=== PATIENT | male | born 1935 | race Caucasian/White ===

== ENCOUNTER → 2018-03-04 08:00 | Outpatient (CLI) | payer BC, MEDICARE, OTHER, SELFPAY ==
[2018-03-04 08:57] LABS: Add Manual Diff / Slide Review NO; Basophils Percent Auto 1.3 % (0-2); Eosinophils Percent Auto 7.3 % (2-4); Hematocrit 38.5 % (41-53); Lymphocytes Percent Auto 28.4 % (25-40); Mean Corpuscular HGB Conc 33.9 % (30-36); Mean Corpuscular Hemoglobin 32.4 PG (26-34); Mean Corpuscular Volume 95.7 fL (80-100); Monocytes Percent Auto 9.6 % (3-14); Neutrophils Absolute Auto 2900 /uL (3000-5900); Neutrophils Percent Auto 53.4 % (50-75); Platelet Count 219 X10^3/uL (150-400); Red Blood Cell Count 4.02 X10^6/uL (4.5-5.9); Red Cell Distribution Width 14.5 % (11.6-14.8); White Blood Cell Count 5.4 X10^3/uL (4.5-11.0)
[2018-03-04 09:05] LABS: Alanine Aminotransferase 25 IU/L (21-72); Albumin Globulin Ratio 1.5 (1.0-2.8); Alkaline Phosphatase 64 U/L (38-126); Aspartate Aminotransferase 27 IU/L (17-59); Bilirubin Total 0.6 mg/dL (0.2-1.3); Blood Urea Nitrogen 19 mg/dL (9-20); Calcium 9.3 mg/dL (8.4-10.2); Carbon Dioxide 29 mmol/L (22-32); Chloride 104 mmol/L (98-107); Cholesterol 152 mg/dL (140-199); Estimated Glomerular Filt Rate > 60.0 mL/min (>60); Globulin 2.6 g/dL (1.7-4.1); Glucose 102 mg/dL (80-110); HDL Cholesterol 79 mg/dL (40-60); HEMOLYSIS < 15 (0-50); LDL Cholesterol Calculated 62 mg/dL (<100); Potassium 4.6 mmol/L (3.4-5.1); Sodium 141 mmol/L (137-145); Total Protein 6.6 g/dL (6.3-8.2); Triglycerides 54 mg/dL (35-150)
[2018-03-04 09:30] LABS: Prostate Specific Antigen Scrn 1.58 ng/mL (0.1-4.0)
[2018-03-04 09:58] LABS: TSH w/ Reflex to FT4 2.53 uIU/mL (0.47-4.68)
== END ==
PROVIDERS: PCP Family Medicine; Visit Provider Family Medicine
DX: I10 Essential (primary) hypertension (principal); N40.0 Benign prostatic hyperplasia without lower urinary tract symptoms
CPT/HCPCS: 36415; 80053; 80061; 84443; 85025; G0103

== ENCOUNTER → 2018-04-02 11:33 | Outpatient (CLI) | payer BC, MEDICARE, OTHER, SELFPAY ==
--- NOTE | 2018-04-23 08:10 | PM.CARDMON.1 ---
Vehicle Insurance Agent Report Referral & Results Date Patient Seen: 04/02/18 Requesting provider: Amos Chicas Indication: Syncope Duration of monitoring (days): 12 Diary information: There are no patient diary entries There were 5 patient triggered events associated with sinus rhythm, PVCs, PACs, and ventricular bigeminy Data: Minimum heart rate was 50 beats per minute at 10:20 on 04/04/2018 Maximum sinus heart rate was 130 beats per minute at 08:40 on 04/03/2018 Maximum overall heart rate was 179 beats per minute at 08:34 on 04/03/2018 during a 5 beat run of SVT 1.6% of identified beats or 20,596 beats were PACs Less than 1% of identified beats were PVCs Patient did have a run of ventricular bigeminy that lasted approximately 1 min 16 sec There was an 8 beat run of presumed slow ventricular tachycardia occurring at 00:15 on 04/08/2018, and a 4 beat run similar slow ventricular tachycardia at 08:20 on 04/05/2018 Impression: Dysrhythmias as above. No clear etiology for syncope identified. Patient with frequent PACs.
--- NOTE | 2018-04-23 08:13 | P.HOLT.S_ITS ---
Zoning Administrator Report Referral & Results Date Patient Seen: 04/02/18 Requesting provider: Amos Chicas Indication: Syncope Duration of monitoring (days): 12 Diary information: There are no patient diary entries There were 5 patient triggered events associated with sinus rhythm, PVCs, PACs, and ventricular bigeminy Data: Minimum heart rate was 50 beats per minute at 10:20 on 04/04/2018 Maximum sinus heart rate was 130 beats per minute at 08:40 on 04/03/2018 Maximum overall heart rate was 179 beats per minute at 08:34 on 04/03/2018 during a 5 beat run of SVT 1.6% of identified beats or 20,596 beats were PACs Less than 1% of identified beats were PVCs Patient did have a run of ventricular bigeminy that lasted approximately 1 min 16 sec There was an 8 beat run of presumed slow ventricular tachycardia occurring at 00 :15 on 04/08/2018, and a 4 beat run similar slow ventricular tachycardia at 08: 20 on 04/05/2018 Impression: Dysrhythmias as above. No clear etiology for syncope identified. Patient with frequent PACs.
== END ==
PROVIDERS: Family Provider Family Medicine; PCP Family Medicine; Visit Provider Family Medicine
DX: R55 Syncope and collapse (principal)
CPT/HCPCS: 0296T

== ENCOUNTER → 2018-05-12 09:24 | Outpatient (CLI) | payer BC, MEDICARE, OTHER, SELFPAY ==
--- NOTE | 2018-05-12 09:25 | DI.ECHO.S_ITS ---
[facility]---------+ [facility] +---------+ : : [address] : [address] [place] : : : : [id number] : : : : Phone: [phone]+ Echocardiogram Report + + :Name: LAQUITA CHINCHILLA Study Date: 05/12/2018 Height: 71 in : :[facility] Weight: 181 lb : : Gender: Male BSA: 2.0 m2 : :: 1935 Age: 82 yrs BP: 158/70 mmHg: :Reason For Study: Arrhythmia, SVT : : Performed By: Jacqueline Jordan : :Referring: DEONDRE TO : + + Interpretation Summary 1) Normal left ventricular thickness, size, wall motion, and systolic function (EF 60-65%). 2) Normal right ventricular size and function. 3) Moderately enlarged left atrium and mildly enlarged right atrium. 4) No significant valvular abnormalities. 5) No prior Echo available for comparison. Procedure: A two-dimensional transthoracic echocardiogram with color flow and Doppler was performed. The study quality was technically good. There is no prior echocardiogram noted for this patient. The patient was in normal sinus rhythm during the exam. Left Ventricle: The left ventricle is normal in size, wall thickness, and systolic function without any focal wall motion abnormalities. The ejection fraction is estimated to be 60-65%. Assessment of diastolic parameters indicates a relaxation abnormality of the left ventricle, consistent with normal filling pressures. Right Ventricle: The right ventricle grossly appears normal in size with probable normal systolic function. Atria: The left atrium is moderately dilated. The right atrium is mildly dilated. The interatrial septum is intact with no evidence for an atrial septal defect. Mitral Valve: The mitral valve is normal in structure and function. There is no mitral regurgitation noted. Aortic Valve: The aortic valve is trileaflet. The aortic valve opens well. There is no aortic valve stenosis. There is trace aortic regurgitation. Tricuspid Valve: The tricuspid valve leaflets are thin and pliable. There is mild tricuspid regurgitation. Pulmonic Valve: The pulmonic valve is normal in structure and function. There is trace pulmonic regurgitation. Great Vessels: The aortic root is mildly dilated. The ascending aorta is at the upper limits of normal in size. Pericardium/ Pleura There is no pericardial effusion. There is no pleural effusion. MMode/2D Measurements & Calculations LVIDd: 4.9 cm Ao root diam: 3.9 cm LVIDs: 3.2 cm Aortic Jxn: 3.0 cm FS: 34.6 % asc Aorta Diam: 3.9 cm EPSS: 0.52 cm Ao Arch Diam (Prox Trans): 3.0 cm IVSd: 0.77 cm LVPWd: 0.77 cm LV dickey. diameter/BSA (cm/m^2): 2.4 LV sys. diameter/BSA (cm/m^2): 1.6 LA dimension: 4.0 cm RA long axis: 6.5 cm LA A2 area: 27.3 cm2 RA area: 23.0 cm2 LA A4 area: 24.2 cm2 RA vol: 69.7 ml LA length (vol): 6.1 cm RA : 34.5 ml/m2 LA vol: 91.9 ml IVC diam: 1.7 cm LA vol index: 45.5 ml/m2 RVDd major: 5.6 cm RVD1 (basal): 3.4 cm RVD2 (mid): 3.1 cm Doppler Measurements & Calculations Ao V2 max: 149.4 cm/sec MV E max farhad: 60.8 cm/sec Ao V2 mean: 92.6 cm/sec MV A max farhad: 62.6 cm/sec Ao max P.9 mmHg MV E/A: 0.97 Ao mean P.2 mmHg Med Peak E' Farhad: 5.2 cm/sec Ao V2 VTI: 35.4 cm E/E' med: 11.8 Lat Peak E' Farhad: 8.8 cm/sec E/E' lat: 6.9 E/e' average: 9.3 MV dec time: 0.30 sec MV P1/2t: 87.1 msec TR max farhad: 296.6 cm/sec MV P1/2t max farhad: 61.4 cm/sec TR max P.2 mmHg MVA(P1/2t): 2.5 cm2 PA V2 max: 90.9 cm/sec PA V2 mean: 59.7 cm/sec PA mean P.7 mmHg PA Accel Time: 0.12 sec Reading Physician:12:53 PM
== END ==
PROVIDERS: Family Provider Family Medicine; PCP Family Medicine; Visit Provider Family Medicine
DX: I47.1 Supraventricular tachycardia (principal); I07.1 Rheumatic tricuspid insufficiency
CPT/HCPCS: 93306

== ENCOUNTER 2019-01-29 15:19 | Day surgery (SDC) | payer MEDICARE, OTHER, SELFPAY ==
[2019-01-29 15:50] VITALS: BP 168/93; PULSE 73; RESP 16; TEMP 36.2; O2SAT 99; BMI 24.8
--- NOTE | 2019-01-29 15:52 | PM.PREOP ---
Pre-operative Note Interval Note History & Physical reviewed/Exam performed by Physician: Yes Changes to H&P: No ASA Class (for procedural sedation): II
[2019-01-29] MEDS: SODIUM CHLORIDE 0.9% 1,000 ML 200 ML IV (15:58)
[2019-01-29] MEDS: fentaNYL 250 MCG/5 ML INJ IV (16:23)
[2019-01-29] MEDS: MIDAZOLAM 5 MG/5 ML VIAL IV (16:23)
--- NOTE | 2019-01-29 16:32 | PM.OP.ENDO ---
Operative Date/Time/Diagnoses Date of procedure: 01/29/19 Time of procedure: 16:32 Pre-op diagnosis: High risk screening colonoscopy Post-op diagnosis: same Procedure & Clinicians Study performed: High risk screening colonoscopy Same procedure as scheduled: Yes Indications: 83yo M with history of unremarkable screening colonoscopies but recent diagnosis of CRC in brother; no other family history nor alarm symptoms in patient. Surgeon: Zehra Stevensr Procedure Notes SCOAP/Timeout: 1407 Procedure in detail: After obtaining informed consent, the patient was brought to the GI suite and placed in the left lateral decubitus position on the examination table. After placement of appropriate monitors, the patient was given incremental doses of Versed and Fentanyl until an appropriate level of sedation was achieved. A time out was held per SCOAP protocol. A digital rectal examination was performed and did not reveal any masses or obstructing lesions but a mildly enlarged prostate is noted. The colonoscope was gently passed into the patient's anus and the entire colon navigated to the level of the cecum with minimal difficulty. Prep was adequate. Once in the cecum, the scope was slowly withdrawn being sure to go before and beyond all mucosal folds and prominences as able to get a thorough examination. No masses or polyps are noted. Other findings include a few small and scattered diverticula in the right colon. At the level of the rectal vault, the scope was retroflexed and the internal anal canal was examined. The scope was straightened and air aspirated from the colon. The instrument was removed from the patient's body and the procedure was concluded. The patient was allowed to awaken from sedation without difficulty and taken to the post-anesthesia care unit in good condition. Scope withdrawal time: 9 min Sedation minutes: 47 Findings: diverticulosis (scattered, in right colon) Specimen(s): none sent Complications: none Impression: 1. scattered diverticulosis in right colon 2. mildly enlarged prostate Recommendations: Colonscopy in 5 years (for high risk following, soft recommendation ) and High fiber diet Follow up: as needed Disposition: PACU
[2019-01-29 16:39] VITALS: BP 161/87; PULSE 75; RESP 16; TEMP 36.2; O2SAT 98
== END 2019-01-29 17:00 | disposition home or self-care (01) ==
PROVIDERS: Family Provider Family Medicine; PCP Family Medicine; Visit Provider Surgery
PROC: 0DJD8ZZ Inspection of Lower Intestinal Tract, Via Natural or Artificial Opening Endoscopic (ICD-10-PCS; CPT 45378; principal; 2019-01-29 16:00)
DX: Z12.11 Encounter for screening for malignant neoplasm of colon (principal); Z80.0 Family history of malignant neoplasm of digestive organs; I10 Essential (primary) hypertension; K57.30 Diverticulosis of large intestine without perforation or abscess without bleeding; N40.0 Benign prostatic hyperplasia without lower urinary tract symptoms
CPT/HCPCS: G0105; 99152; 99153; J2250; J3010

== ENCOUNTER → 2019-03-17 08:11 | Outpatient (CLI) | payer MEDICARE, OTHER, SELFPAY ==
[2019-03-17 09:25] LABS: Hematocrit 40.8 % (41-53); Hemoglobin 13.6 g/dL (13.5-17.5); Mean Corpuscular HGB Conc 33.2 % (30-36); Mean Corpuscular Hemoglobin 32.2 PG (26-34); Mean Corpuscular Volume 96.8 fL (80-100); Platelet Count 254 X10^3/uL (150-400); Red Blood Cell Count 4.22 X10^6/uL (4.5-5.9); Red Cell Distribution Width 14.5 % (11.6-14.8)
[2019-03-17 09:57] LABS: Alanine Aminotransferase 20 IU/L (21-72); Albumin Globulin Ratio 1.3 (1.0-2.8); Alkaline Phosphatase 68 U/L (38-126); Aspartate Aminotransferase 31 IU/L (17-59); Bilirubin Total 0.5 mg/dL (0.2-1.3); Blood Urea Nitrogen 18 mg/dL (9-20); Calcium 9.4 mg/dL (8.4-10.2); Carbon Dioxide 28 mmol/L (22-32); Chloride 103 mmol/L (98-107); Cholesterol 170 mg/dL (140-199); Estimated Glomerular Filt Rate > 60.0 mL/min (>60); Glucose 107 mg/dL (80-110); HDL Cholesterol 64 mg/dL (40-60); HEMOLYSIS < 15 (0-50); LDL Cholesterol Calculated 94 mg/dL (<100); Potassium 4.5 mmol/L (3.4-5.1); Sodium 138 mmol/L (137-145); Triglycerides 60 mg/dL (35-150); Uric Acid 4.1 mg/dL (3.5-8.5)
[2019-03-17 10:26] LABS: Prostate Specific Antigen 1.53 ng/mL (0.10-4.00)
[2019-03-17 10:31] LABS: TSH w/ Reflex to FT4 2.75 uIU/mL (0.47-4.68)
[2019-03-17 10:44] LABS: Vitamin B12 425 pg/mL (239-931)
[2019-03-17 12:05] LABS: Neutrophils Absolute Manual 2550 /uL (3000-5900); Total Cells Counted 100
[2019-03-17 12:07] LABS: RBC Morphology Normal Morphology
== END ==
PROVIDERS: PCP Family Medicine; Visit Provider Family Medicine
DX: E53.8 Deficiency of other specified B group vitamins (principal); I10 Essential (primary) hypertension; M10.9 Gout, unspecified; N40.0 Benign prostatic hyperplasia without lower urinary tract symptoms
CPT/HCPCS: 36415; 80053; 80061; 82607; 84153; 84443; 84550; 85025

== ENCOUNTER → 2019-09-01 09:05 | Outpatient (CLI) | payer MEDICARE, OTHER, SELFPAY ==
--- NOTE | 2019-09-01 09:08 | DI.ECHO.S_ITS ---
[facility] +---------+ [facility] +---------+ : : [address] : : [address] : [place] : : : : [phone] : : : : Phone: [phone]+ Echocardiogram Report + + :Name: LAQUITA CHINCHILLA Study Date: 09/01/2019 Height: 72 in : :[facility] Weight: 188 lb : : Gender: Male BSA: 2.1 m2 : :: 1935 Age: 83 yrs BP: 142/76 mmHg: :Reason For Study: Syncope : :Ordering Physician: Dr. Trinidad : :Juan Francisco Performed By: Nikos Bach : :Referring: DEONDRE TO : + + Interpretation Summary The ejection fraction is estimated to be 60-65%. The right ventricular systolic pressure is estimated to be at least 36 mmHg based on an estimated right atrial pressure of 3 mm Hg. There is mild tricuspid regurgitation. The aortic root is borderline dilated. Procedure: A two-dimensional transthoracic echocardiogram with color flow and Doppler was performed. The study quality was technically adequate. Prior echo performed on 05/12/18. The patient was in normal sinus rhythm during the exam. Left Ventricle: The left ventricle is normal in size. There is normal left ventricular wall thickness. Left ventricular systolic function is normal. The ejection fraction is estimated to be 60-65%. Left ventricular wall motion is normal. Right Ventricle: The right ventricle is normal in size and function. Atria: There is mild biatrial enlargement. The interatrial septum is intact with no evidence for an atrial septal defect. Mitral Valve: The mitral valve is normal in structure and function. There is trace mitral regurgitation. Aortic Valve: The aortic valve is trileaflet. The aortic valve opens well. There is trace aortic regurgitation. Tricuspid Valve: The tricuspid valve is normal in structure and function. There is mild tricuspid regurgitation. The right ventricular systolic pressure is estimated to be at least 36 mmHg based on an estimated right atrial pressure of 3 mm Hg. Pulmonic Valve: The pulmonic valve is not well visualized. There is trace pulmonic regurgitation. Great Vessels: The aortic root is borderline dilated. The dimensions of the ascending aorta are normal. The pulmonary artery is normal size. The IVC is of normal diameter and collapses greater than 50% with a sniff. This suggests a low right atrial pressure of 3 mm Hg. Pericardium/ Pleura There is no pericardial effusion. There is no pleural effusion. MMode/2D Measurements & Calculations LVIDd: 4.0 cm LVOT diam: 2.1 cm LVIDs: 2.8 cm Ao root diam: 3.7 cm FS: 29.7 % Aortic Jxn: 3.2 cm EPSS: 0.40 cm IVSd: 1.0 cm LVPWd: 0.91 cm LV dickey. diameter/BSA (cm/m^2): 1.9 LV sys. diameter/BSA (cm/m^2): 1.4 LA A2 area: 24.0 cm2 RA long axis: 6.3 cm LA A4 area: 22.0 cm2 RA area: 16.4 cm2 LA length (vol): 5.7 cm RA vol: 36.2 ml LA vol: 78.8 ml RA : 17.4 ml/m2 LA vol index: 38.0 ml/m2 TAPSE: 2.6 cm Doppler Measurements & Calculations Ao V2 max: 116.8 cm/sec LVOT Max Farhad: 82.7 cm/sec Ao V2 mean: 84.4 cm/sec LV V1 max P.7 mmHg Ao max P.5 mmHg LV V1 VTI: 19.1 cm Ao mean P.2 mmHg SIVAN(I,D): 2.5 cm2 Ao V2 VTI: 27.1 cm SIVAN(V,D): 2.5 cm2 sev ratio: 0.70 SIVAN indexed to BSA (cm^2/m^2): 1.2 MV E max farhad: 63.4 cm/sec TR max farhad: 261.7 cm/sec MV A max farhad: 81.0 cm/sec TR max P.5 mmHg MV E/A: 0.78 PA V2 max: 79.4 cm/sec Med Peak E' Farhad: 6.9 cm/sec PA V2 mean: 54.4 cm/sec E/E' med: 9.2 PA mean P.4 mmHg Lat Peak E' Farhad: 9.3 cm/sec PA Accel Time: 0.08 sec E/E' lat: 6.8 E/e' average: 8.0 MV dec time: 0.23 sec SV(LVOT): 67.6 ml Reading Physician:12:13 PM
== END ==
PROVIDERS: PCP Family Medicine; Visit Provider Family Medicine
DX: I07.1 Rheumatic tricuspid insufficiency (principal); R55 Syncope and collapse
CPT/HCPCS: 93306

== ENCOUNTER → 2020-03-15 08:28 | Outpatient (CLI) | payer MEDICARE, OTHER, SELFPAY ==
[2020-03-15 09:53] LABS: Add Manual Diff / Slide Review NO; Basophils Absolute Auto 100 /uL (0-100); Basophils Percent Auto 1.1 % (0-2); Eosinophils Absolute Auto 400 /uL (0-450); Eosinophils Percent Auto 7.4 % (2-4); Hematocrit 36.6 % (41-53); Hemoglobin 12.5 g/dL (13.5-17.5); Lymphocytes Absolute Auto 1300 /uL (1100-4500); Lymphocytes Percent Auto 26.6 % (25-40); Mean Corpuscular HGB Conc 34.2 % (30-36); Mean Corpuscular Hemoglobin 32.9 PG (26-34); Mean Corpuscular Volume 96.2 fL (80-100); Monocytes Absolute Auto 500 /uL (0-900); Monocytes Percent Auto 10.4 % (3-14); Neutrophils Absolute Auto 2600 /uL (1500-7000); Neutrophils Percent Auto 54.5 % (50-75); Platelet Count 211 X10^3/uL (150-400); Red Blood Cell Count 3.81 X10^6/uL (4.5-5.9); Red Cell Distribution Width 14.5 % (11.6-14.8); White Blood Cell Count 4.8 X10^3/uL (4.5-11.0)
[2020-03-15 10:20] LABS: Alanine Aminotransferase 15 IU/L (<50); Albumin 3.8 g/dL (3.5-5.0); Albumin Globulin Ratio 1.7 (1.0-2.8); Alkaline Phosphatase 60 U/L (38-126); Aspartate Aminotransferase 32 IU/L (17-59); BUN Creatinine Ratio 21.1 (6-22); Bilirubin Total 0.9 mg/dL (0.2-1.3); Blood Urea Nitrogen 19 mg/dL (9-20); Calcium 9.3 mg/dL (8.4-10.2); Carbon Dioxide 26 mmol/L (22-32); Chloride 106 mmol/L (98-107); Cholesterol 144 mg/dL (140-199); Estimated Glomerular Filt Rate > 60.0 mL/min (>60); Globulin 2.3 g/dL (1.7-4.1); Glucose 92 mg/dL (80-110); HDL Cholesterol 83 mg/dL (40-60); HEMOLYSIS < 15 (0-50); LDL Cholesterol Calculated 53 mg/dL (<100); Potassium 4.7 mmol/L (3.4-5.1); Sodium 136 mmol/L (137-145); Total Protein 6.1 g/dL (6.3-8.2); Triglycerides 42 mg/dL (35-150)
[2020-03-15 11:09] LABS: Vitamin B12 422 pg/mL (239-931)
== END ==
PROVIDERS: PCP Family Medicine; Referring Provider Family Medicine; Visit Provider Family Medicine
DX: Z00.00 Encounter for general adult medical examination without abnormal findings (principal); E53.8 Deficiency of other specified B group vitamins; I10 Essential (primary) hypertension; Z13.6 Encounter for screening for cardiovascular disorders
CPT/HCPCS: 36415; 80053; 80061; 82607; 84443; 85025

== ENCOUNTER → 2020-04-21 10:44 | Outpatient (CLI) | payer MEDICARE, OTHER, SELFPAY ==
--- NOTE | 2020-05-18 08:33 | PM.CARDMON.1 ---
Vice President Investor Relations Report Referral & Results Date Patient Seen: 04/21/20 Requesting provider: Amos Chicas Indication: Dizziness Duration of monitoring (days): 11 Diary information: There were 30 patient triggered events and 0 patient diary entries Patient triggered events were associated with sinus rhythm, SVT, PACs, and PVCs Data: Minimum heart rate identified was 40 beats per minute at 05:14 on 04/25/2020 Maximum sinus heart rate was 131 beats per minute at 09:00 on 04/29/2020 Maximum overall heart rate was 190 beats per minute at 09:49 on 04/25/2020 during a 4 beat run of nonsustained ventricular tachycardia Approximately 1.7% of identified beats were supraventricular ectopic in origin Less than 1% of identified beats were ventricular ectopic in origin There are 2 runs of nonsustained polymorphic ventricular tachycardia the longest being 4 beats at the rate of 139 beats per minute. There also 1100 runs of SVT/atrial tachycardia with the fastest being at a rate of 190 beats per minute during a 6 beat run. The longest lasted 21.9 seconds at a rate of 112 beats per minute, which strongly suggest atrial tachycardia rather than true SVT Impression: Prominent supraventricular dysrhythmias as above including runs of atrial tachycardia/SVT although very brief in duration Patient also had 2 runs of polymorphic nonsustained ventricular tachycardia as above
== END ==
PROVIDERS: Family Provider Family Medicine; PCP Family Medicine; Referring Provider Family Medicine; Visit Provider Family Medicine
DX: R42 Dizziness and giddiness (principal)
CPT/HCPCS: 0296T; 0298T

== ENCOUNTER 2021-01-04 02:42 | Emergency (ER) | payer MEDICARE, OTHER, SELFPAY ==
[2021-01-04 03:03] VITALS: BP 202/95; PULSE 86; RESP 20; TEMP 36.6; O2SAT 97; BMI 25.4
--- NOTE | 2021-01-04 03:16 | ED_ITS ---
HPI - Male Genitourinary General Chief complaint: Urogenital-Male Stated complaint: Catheter problem Time Seen by Provider: 01/04/21 02:50 Source: patient Mode of arrival: Ambulatory Limitations: no limitations History of Present Illness HPI Narrative: 85-year-old gentleman with a history of hypertension, gout and BPH currently on doxazosin. Was traveling in [facility] and experienced acute urinary retention. Went to an emergency room and had a Arroyo catheter placed with 1.2 L of urine returning. With in a couple of hours it began to be more blood-tinged and he comes to the emergency room this evening noticed blood clots and decreased drainage from the catheter. He denies fevers, cough, chills, abdominal pain, flank pain, vomiting, diarrhea, chest pain or dyspnea. Related Data Home Medications Medication Instructions Recorded Confirmed HOMEOPATHIC SUBSTANCE (SAW 1 cap PO Q DAY #0 04/12/11 09/09/19 [place]) aspirin 325 mg PO DAILY #0 04/12/11 09/09/19 Previous Rx's Medication Instructions Recorded Syringes: 3ml Luer-Wilmar Syringe 25g #12 each 03/16/19 x 1 allopurinol 300 mg tablet 300 mg PO DAILY #90 tab 03/01/20 amlodipine 5 mg tablet 5 mg PO QDAY #90 tab 03/01/20 cyanocobalamin (vitamin B-12) 1,000 mcg IM QMONTH #3 ml 03/01/20 1,000 mcg/mL injection solution doxazosin 4 mg tablet 4 mg PO HS #90 tab 03/01/20 lisinopril 40 mg tablet 40 mg PO BID #180 tab 03/01/20 Allergies Allergy/AdvReac Type Severity Reaction Status Date / Time No Known Drug Allergies Allergy Verified 05/28/20 11:03 Review of Systems Review of Systems Narrative: Remainder of complete review of systems is otherwise unremarkable except for that included in the HPI. Patient History Medical History (Updated 01/04/21 @ 03:18 by Jaimee Eric MD) Benign prostatic hyperplasia (04/12/11) Chicken pox Fractures Gout (~2005) Hearing loss Hypertension Measles Mumps Ruptured tympanic membrane (~1964) Family History Father Heart disease Stroke Social History marital status: household members: spouse Smoking Status: Never smoker alcohol intake: current (1-2 A DAY ) substance use type: does not use Smoking Status: Never smoker alcohol intake frequency: 0-2 drinks per day Substance Use Type: does not use Exam Narrative Exam Narrative: General: Alert appropriate in no acute distress Respiratory: Able to speak in full sentences, no obvious respiratory distress Skin: No obvious rashes, warm and dry Neurologic: Grossly intact no obvious asymmetries or abnormalities Psych: appropriate insight and affect, cooperative : Arroyo catheter with grossly bloody urine and clots with minimal urine drainage Initial Vital Signs Initial Vital Signs: Vital Signs Temperature 97.9 F 01/04/21 03:03 Pulse Rate 86 01/04/21 03:03 Respiratory Rate 20 01/04/21 03:03 Blood Pressure 202/95 H 01/04/21 03:03 Pulse Oximetry 97 01/04/21 03:03 Course Orders Ordered: ED Orders 01/04/21 03:40 Urinalysis and Microscopic Stat Discontinued Medications Lidocaine HCl (Lidocaine 2% (Glydo) 6 Ml Gel) 6 ml TOP NOW ONE Stop: 01/04/21 03:05 Last Admin: 01/04/21 03:34 Dose: 6 ml Documented by: MARTIN Tamsulosin HCl (Tamsulosin 0.4 Mg Capsule) 0.4 mg PO NOW ONE Stop: 01/04/21 03:14 Last Admin: 01/04/21 03:36 Dose: 0.4 mg Documented by: MARTIN Vital Signs Vital signs: Vital Signs - 8 hr 01/04/21 03:03 Temperature 97.9 F Pulse Rate 86 Respiratory Rate 20 Blood Pressure 202/95 H Pulse Oximetry 97 [facility] - Male Genitourinary Medical Records Attestation: I reviewed the patient's medical records. Lab Data Labs: Lab Results 01/04/21 Range/Units 03:40 Urine Color Dark yellow Urine Appearance Sl cloudy Urine pH 5.0 (4.5-8.0) Ur Specific Mineral 1.020 (1.000-1.035) Urine Protein Trace H (Negative) Urine Glucose (UA) Trace H (Negative) g/dL Urine Ketones Negative (NEGATIVE) Urine Occult Blood 3+ H (Negative) Urine Nitrate Negative (Negative) Urine Bilirubin Negative (NEGATIVE) Urine Urobilinogen 0.2 (0.2) E.U./dL Ur Leukocyte Esterase Negative (NEGATIVE) Urine RBC 30-100/hpf H (0-5/HPF) Urine WBC 0-1/hpf (0-5/HPF) Ur Squamous Epith Cells 0-1 /hpf (0-5/HPF) Amorphous Sediment 1+ Urine Bacteria Occasional (0-1) (None) Granular Casts 0-1/lpf (None) Ur Culture Indicated? Cult not indicated MDM Narrative Medical decision making narrative: 85-year-old gentleman with acute urinary retention now with gross hematuria and blocked recently placed Arroyo catheter. Three-way Arroyo is placed bladder is irrigated. Estimated 1 L of urine remained in his bladder prior to removal of the blood clots. Urine has been sent to look for UTI but do not suspect infection at this time. Tamsulosin is added to his current medications. Urine is clearing nicely and Arroyo is draining appropriately. He is safe for home discharge Discharge Plan Departure Patient Disposition: Home Clinical Impression: Acute retention of urine Hematuria Qualifiers: Hematuria type: gross Qualified Code(s): R31.0 - Gross hematuria Instructions: DI for Urinary Retention in Men Activity Restrictions/Additional Instructions: Thank you for coming in today I suspect that you began having bleeding have from broken blood vessels inside your bladder. When it was distended enough to hold 1.2 L of urine, this can be a complication. In the emergency department, a 3 way Arroyo catheter was placed and the clots were rinsed out with good return of urine. I am going to suggest that you add Flomax to your medications. Please do c ontinue to watch your blood pressures and if your finding that they are persistently low or your dizzy when standing up we may have to decide if you should continue with the Flomax or the doxazosin You are welcome to keep your scheduled appointment with Dr. Chicas tomorrow. As you were in the ER tonight you may also choose to cancel that appointment and reschedule it for 4-5 days in the future. If you have any recurrent symptoms please return to the ER Prescriptions: No Action (DME) Syringes: 3ml Luer-Wilmar Syringe 25g x 1 0 .Route .MEDSUPPLY Qty: 12 RF: 3 HOMEOPATHIC SUBSTANCE (SAW PAL[place]) 1 cap PO Q DAY Qty: 0 RF: 0 aspirin 325 mg Tablet 325 mg PO DAILY Qty: 0 RF: 0 doxazosin [Cardura] 4 mg tablet 4 mg PO HS Qty: 90 RF: 3 lisinopril 40 mg tablet 40 mg PO BID Qty: 180 RF: 3 allopurinol 300 mg tablet 300 mg PO DAILY Qty: 90 RF: 3 amlodipine [Norvasc] 5 mg tablet 5 mg PO QDAY Qty: 90 RF: 3 cyanocobalamin (vitamin B-12) 1,000 mcg/mL solution 1,000 mcg IM QMONTH Qty: 3 RF: 3 Referrals: Amos Chicas MD [Primary Care Provider] -
[2021-01-04] MEDS: LIDOCAINE 2% (GLYDO) 6 ML GEL TOP (03:34)
[2021-01-04] MEDS: TAMSULOSIN 0.4 MG CAPSULE PO (03:36)
--- NOTE | 2021-01-04 03:55 | PC.NURSE ---
3 way catheter inserted without difficulty; irrigating via 3-way port with NS; urine sample sent for analysis.
[2021-01-04 03:59] LABS: Appearance Urine UA SL CLOUDY; Bilirubin Urine UA NEGATIVE (NEGATIVE); Glucose Urine UA TRACE g/dL (Negative); Ketones Urine UA NEGATIVE (NEGATIVE); Leukocyte Esterase Urine UA NEGATIVE (NEGATIVE); Nitrite Urine UA NEGATIVE (Negative); Occult Blood Urine UA 3+ (Negative); Protein Urine UA TRACE (Negative); Urobilinogen Urine UA 0.2 E.U./dL (0.2)
[2021-01-04 04:01] LABS: Color Urine UA Dark Yellow; RBC Urine 30-100/HPF (0-5/HPF); WBC Urine 0-1/HPF (0-5/HPF)
[2021-01-04 04:02] LABS: Amorphous Sediment Urine 1+; Bacteria Urine Occasional (0-1); Culture Indicated Urine Cult Not Indicated; Granular Casts Urine 0-1/LPF; Squamous Epithelial Cell Urine 0-1 /HPF (0-5/HPF)
[2021-01-04 04:36] VITALS: BP 178/83; PULSE 89; RESP 18; O2SAT 98
== END 2021-01-04 04:38 | disposition home or self-care (01) ==
PROVIDERS: Emergency Provider Emergency Medicine; Family Provider Family Medicine; PCP Family Medicine
DX: R33.8 Other retention of urine (principal); R31.0 Gross hematuria
CPT/HCPCS: 51701; 51705; 51798; 81001; 99283; 99284

== ENCOUNTER 2021-01-15 06:00 | Emergency (ER) | payer MEDICARE, OTHER, SELFPAY ==
[2021-01-15 06:05] VITALS: BP 194/88; PULSE 94; RESP 17; TEMP 36.7; O2SAT 97; BMI 25.0
[2021-01-15] MEDS: LIDOCAINE 2% (GLYDO) 6 ML GEL TOP ×2 (06:34→06:55)
--- NOTE | 2021-01-15 06:38 | PC.NURSE ---
Pt with indwelling catheter for past week, hasn't been draining since yesterday afternoon. Tried to flush with normal saline. Catheter starts draining the stops shortly after. flushed a total of 300 mls. with apx 150mls out.
[2021-01-15 06:45] VITALS: BP 175/80; PULSE 83; RESP 15; O2SAT 95
--- NOTE | 2021-01-15 06:51 | ED.MALEGU ---
HPI - Male Genitourinary General Chief complaint: Urogenital-Male Stated complaint: Urinary catheter issues Time Seen by Provider: 01/15/21 06:50 Source: patient and family Mode of arrival: Ambulatory Limitations: no limitations History of Present Illness HPI Narrative: Patient is an 85-year-old male with history of urinary retention, BPH and Arroyo catheter his placement presenting today with the decrease Arroyo catheter output. He also noticed some pink hematuria. A 16 Macedonian in now. No fever or chills. He also was started on laxative after being seen by Urology on January 11. He has a follow-up appoint Urology on January 25. Related Data Home Medications Medication Instructions Recorded Confirmed HOMEOPATHIC SUBSTANCE (SAW 1 cap PO Q DAY #0 04/12/11 01/11/21 ITZ) aspirin 325 mg PO DAILY #0 04/12/11 01/11/21 Previous Rx's Medication Instructions Recorded Syringes: 3ml Luer-Wilmar Syringe 25g #12 each 03/16/19 x 1 allopurinol 300 mg tablet 300 mg PO DAILY #90 tab 03/01/20 amlodipine 5 mg tablet 5 mg PO QDAY #90 tab 03/01/20 cyanocobalamin (vitamin B-12) 1,000 mcg IM QMONTH #3 ml 03/01/20 1,000 mcg/mL injection solution doxazosin 4 mg tablet 4 mg PO HS #90 tab 03/01/20 lisinopril 40 mg tablet 40 mg PO BID #180 tab 03/01/20 ciprofloxacin HCl 500 mg tablet 500 mg PO BID #14 tab 01/05/21 tamsulosin 0.4 mg capsule 0.4 mg PO DAILY #90 cap 01/05/21 ciprofloxacin HCl 250 mg tablet 250 mg PO BID #6 tab 01/11/21 Allergies Allergy/AdvReac Type Severity Reaction Status Date / Time No Known Drug Allergies Allergy Verified 01/11/21 08:58 Review of Systems Review of Systems Narrative: GENERAL: Denies chills,fever HEENT: Denies throat pain RESPIRATORY: Denies dyspnea, cough, wheezing CARDIOVASCULAR: Denies chest pain, palpitations GASTROINTESTINAL: Denies nausea, vomiting : See HPI MUSCULOSKELETAL: Denies extremity pain, injury SKIN: No rash, no laceration, no pruritus NEUROLOGIC: Denies weakness, dizziness, headache, numbness 8 point review of systems is negative except for those stated above and HPI Patient History Medical History Benign prostatic hyperplasia (04/12/11) Chicken pox Fractures Gout (~2005) Hearing loss Hypertension Measles Mumps Ruptured tympanic membrane (~1964) Family History Father Heart disease Stroke Social History marital status: household members: spouse Smoking Status: Never smoker alcohol intake: current (1-2 A DAY ) substance use type: does not use Smoking Status: Never smoker alcohol intake frequency: 0-2 drinks per day Substance Use Type: does not use Exam Initial Vital Signs Initial Vital Signs: Vital Signs Temperature 98.1 F 01/15/21 06:05 Pulse Rate 94 H 01/15/21 06:05 Respiratory Rate 17 01/15/21 06:05 Blood Pressure 194/88 H 01/15/21 06:05 Pulse Oximetry 97 01/15/21 06:05 GENERAL: Alert pleasant 85-year-old male CARDIOVASCULAR: peripheral pulses in tact, cap refill <2 sec RESPIRATORY: No respiratory distress, speaks in full sentences without difficulty : Clear yellow urine however there is some pink urine that now seems to be coming out. EXTREMITIES: Normal range of motion, no clubbing or edema. Neurovascularly intact NEUROLOGICAL: Cranial nerves II through XII grossly intact. Normal gait and speech. SKIN: Warm, dry, no petechiae, no rashes or lesions. Course Orders Ordered: Discontinued Medications Lidocaine HCl (Lidocaine 2% (Glydo) 6 Ml Gel) 6 ml TOP NOW ONE Stop: 01/15/21 06:31 Last Admin: 01/15/21 06:34 Dose: 6 ml Documented by: XIN Lidocaine HCl (Lidocaine 2% (Glydo) 6 Ml Gel) 6 ml TOP NOW ONE Stop: 01/15/21 06:48 Vital Signs Vital signs: Vital Signs - 8 hr 01/15/21 06:05 01/15/21 06:45 Temperature 98.1 F Pulse Rate 94 H 83 Respiratory Rate 17 15 Blood Pressure 194/88 H 175/80 H Pulse Oximetry 97 95 MDM - Male Genitourinary MDM Narrative Medical decision making narrative: Arroyo catheter 16 Macedonian in in has been clocgged multiple times. Nurse pulled out the 16 Macedonian there was large blood clot blocking it. Recommend increasing it to an 18 Macedonian. Unfortunately the nurse is changed out Arroyo catheter reinserted a new 16 Macedonian patient agrees to under procedure again for the 18 Macedonian. He is not on any anti-platelet or anticoagulation medication. PCP and urologist both prescribed Cipro 500 mg twice a day for 1 week. Patient has leukocytes in his urine at this time recommend that he start taking that antibiotic. Discharge Plan Departure Patient Disposition: Home Clinical Impression: Hematuria Instructions: DI for Hematuria, DI for Urinary Retention in Men Activity Restrictions/Additional Instructions: *You have been diagnosed with urinary retention, hematuria *What to do: Continue to increase fluids, monitor urine output, larger catheter should not cause clotting, you should be able to see through this tube light pink color is okay however gross dark blood is not *Continue to take medications as directed -start taking Cipro as perscribed by Dr. Chicas. 1 pill twice daily for 1 week *Follow up with your primary care provider in 2-3 days *Return to ER if you should have decreased urine output gross blood in Arroyo catheter or any new, worsening or concerning symptoms Prescriptions: No Action (DME) Syringes: 3ml Luer-Wilmar Syringe 25g x 1 0 .Route .MEDSUPPLY Qty: 12 RF: 3 tamsulosin [Flomax] 0.4 mg capsule 0.4 mg PO DAILY Qty: 90 RF: 3 ciprofloxacin HCl [Cipro] 500 mg tablet 500 mg PO BID Qty: 14 RF: 0 HOMEOPATHIC SUBSTANCE (SAW PALMETTO) 1 cap PO Q DAY Qty: 0 RF: 0 aspirin 325 mg Tablet 325 mg PO DAILY Qty: 0 RF: 0 doxazosin [Cardura] 4 mg tablet 4 mg PO HS Qty: 90 RF: 3 lisinopril 40 mg tablet 40 mg PO BID Qty: 180 RF: 3 allopurinol 300 mg tablet 300 mg PO DAILY Qty: 90 RF: 3 amlodipine [Norvasc] 5 mg tablet 5 mg PO QDAY Qty: 90 RF: 3 cyanocobalamin (vitamin B-12) 1,000 mcg/mL solution 1,000 mcg IM QMONTH Qty: 3 RF: 3 ciprofloxacin HCl 250 mg tablet 250 mg PO BID Qty: 6 RF: 0 Referrals: Amos Chicas MD [Primary Care Provider] - Rodney Jack MD [Physician] -
[2021-01-15 07:24] VITALS: BP 173/73; PULSE 74; RESP 18; O2SAT 98
--- NOTE | 2021-01-15 07:24 | PC.NURSE ---
Large clot at tip of previous catheter; New bigger 18Fr catheter placed. Immediately after inserting about 2 dime sized clots came out.
[2021-01-15 07:34] LABS: Bacteria Urine Moderate (10-30); RBC Urine 10-30/HPF (0-5/HPF); Squamous Epithelial Cell Urine None Seen (0-5/HPF); WBC Urine 30-100/HPF (0-5/HPF)
[2021-01-15 07:35] LABS: Culture Indicated Urine Specimen Cultured
== END 2021-01-15 07:25 | disposition home or self-care (01) ==
PROVIDERS: Emergency Provider Emergency Medicine; Family Provider Family Medicine; PCP Family Medicine
DX: T83.9XXA Unspecified complication of genitourinary prosthetic device, implant and graft, initial encounter (principal); R31.9 Hematuria, unspecified; T83.021A Displacement of indwelling urethral catheter, initial encounter
CPT/HCPCS: 51702; 51798; 81003; 81015; 87077; 87086; 87147; 99281; 99283

== ENCOUNTER 2021-01-15 13:52 | Emergency (ER) | payer MEDICARE, OTHER, SELFPAY ==
[2021-01-15 14:00] VITALS: BP 178/77; PULSE 77; RESP 18; TEMP 36.9; O2SAT 98
--- NOTE | 2021-01-15 14:27 | ED.MALEGU ---
HPI - Male Genitourinary General Chief complaint: Urogenital-Male Stated complaint: cathiter fell out Time Seen by Provider: 01/15/21 14:14 Source: patient and family Mode of arrival: Ambulatory History of Present Illness HPI Narrative: Patient here for replacement of Arroyo catheter that was placed at earlier this morning at this facility. Patient had 16 [place] Islander originally placed before coming in last night. Had urinary tension. This morning it was changed to a larger 18 [place] Island[place], that fell out this afternoon. At this time bladder scan shows 530 mL. Notes below are from ER visit this morning here HPI - Male Genitourinary General Chief complaint: Urogenital-Male Stated complaint: Urinary catheter issues Time Seen by Provider: 01/15/21 06:50 Source: patient and family Mode of arrival: Ambulatory Limitations: no limitations History of Present Illness HPI Narrative: Patient is an 85-year-old male with history of urinary retention, BPH and Arroyo catheter his placement presenting today with the decrease Arroyo catheter output. He also noticed some pink hematuria. A 16 [place] Islander in now. No fever or chills. He also was started on laxative after being seen by Urology on January 11. He has a follow-up appoint Urology on January 25. Instructions: DI for Hematuria, DI for Urinary Retention in Men Activity Restrictions/Additional Instructions: *You have been diagnosed with urinary retention, hematuria *What to do: Continue to increase fluids, monitor urine output, larger catheter should not cause clotting, you should be able to see through this tube light pink color is okay however gross dark blood is not *Continue to take medications as directed -start taking Cipro as perscribed by Dr. Chicas. 1 pill twice daily for 1 week *Follow up with your primary care provider in 2-3 days *Return to ER if you should have decreased urine output gross blood in Arroyo catheter or any new, worsening or concerning symptoms Related Data Home Medications Medication Instructions Recorded Confirmed HOMEOPATHIC SUBSTANCE (SAW 1 cap PO Q DAY #0 04/12/11 01/11/21 ITZ) aspirin 325 mg PO DAILY #0 04/12/11 01/11/21 Previous Rx's Medication Instructions Recorded Syringes: 3ml Luer-Wilmar Syringe 25g #12 each 03/16/19 x 1 allopurinol 300 mg tablet 300 mg PO DAILY #90 tab 03/01/20 amlodipine 5 mg tablet 5 mg PO QDAY #90 tab 03/01/20 cyanocobalamin (vitamin B-12) 1,000 mcg IM QMONTH #3 ml 03/01/20 1,000 mcg/mL injection solution doxazosin 4 mg tablet 4 mg PO HS #90 tab 03/01/20 lisinopril 40 mg tablet 40 mg PO BID #180 tab 03/01/20 ciprofloxacin HCl 500 mg tablet 500 mg PO BID #14 tab 01/05/21 tamsulosin 0.4 mg capsule 0.4 mg PO DAILY #90 cap 01/05/21 ciprofloxacin HCl 250 mg tablet 250 mg PO BID #6 tab 01/11/21 Allergies Allergy/AdvReac Type Severity Reaction Status Date / Time No Known Drug Allergies Allergy Verified 01/11/21 08:58 Review of Systems Review of Systems Narrative: GENERAL: Denies chills, fatigue, malaise, fever, sweats. HEENT: Denies sinus pain, ear pain, sore throat RESPIRATORY: Denies dyspnea, cough CARDIOVASCULAR: Denies chest pain, palpitations GASTROINTESTINAL: Denies nausea, vomiting, abdominal pain : Complaints hematuria, Arroyo catheter malfunction MUSCULOSKELETAL: denies muscle or bony pain SKIN: Denies rash, skin lesions NEUROLOGIC: Denies weakness, numbness ROS Unobtainable: All systems reviewed & are unremarkable except as noted in HPI and below Patient History Medical History Benign prostatic hyperplasia (04/12/11) Chicken pox Fractures Gout (~2005) Hearing loss Hypertension Measles Mumps Ruptured tympanic membrane (~1964) Family History Father Heart disease Stroke Social History marital status: household members: spouse Smoking Status: Never smoker alcohol intake: current (1-2 A DAY ) substance use type: does not use Smoking Status: Never smoker alcohol intake frequency: 0-2 drinks per day Substance Use Type: does not use Exam Narrative Exam Narrative: GENERAL: in no distress, not toxic not dyspneic HEAD: Normocephalic. GASTROINTESTINAL: Abdomen soft, non-tender NEURO: AOx4. SKIN: Warm and dry PSYCH: Not anxious, is cooperative Initial Vital Signs Initial Vital Signs: Vital Signs Temperature 98.4 F 01/15/21 14:00 Pulse Rate 77 01/15/21 14:00 Respiratory Rate 18 01/15/21 14:00 Blood Pressure 178/77 H 01/15/21 14:00 Pulse Oximetry 98 01/15/21 14:00 Course Course Course Narrative: No new issues during course of stay. Orders Ordered: Discontinued Medications Lidocaine HCl (Lidocaine 2% (Glydo) 6 Ml Gel) 6 ml TOP NOW ONE Stop: 01/15/21 14:26 Reevaluation(s) Reevaluation #1: Patient tolerated replacement of catheter without any difficulties, 550 mL urine in Arroyo bag Time: 14:55 Vital Signs Vital signs: Vital Signs - 8 hr 01/15/21 14:00 Temperature 98.4 F Pulse Rate 77 Respiratory Rate 18 Blood Pressure 178/77 H Pulse Oximetry 98 MDM - Male Genitourinary Differential Diagnosis Differential diagnosis: Likely other (Arroyo catheter replacement) MDM Narrative Medical decision making narrative: Appropriate for discharge home. Notes further labs indicated. Patient essentially here for replacement of Arroyo catheter fell. No trauma. Discharge Plan Departure Patient Disposition: Home Clinical Impression: Dislodged Arroyo catheter Qualifiers: Encounter type: initial encounter Qualified Code(s): T83.021A - Displacement of indwelling urethral catheter, initial encounter Instructions: How to Care for Your Arroyo Catheter -- Male Activity Restrictions/Additional Instructions: Continue Arroyo catheter care as well as instructions from early this morning. Return if worse or if any questions or concerns Prescriptions: No Action (DME) Syringes: 3ml Luer-Wilmar Syringe 25g x 1 0 .Route .MEDSUPPLY Qty: 12 RF: 3 tamsulosin [Flomax] 0.4 mg capsule 0.4 mg PO DAILY Qty: 90 RF: 3 ciprofloxacin HCl [Cipro] 500 mg tablet 500 mg PO BID Qty: 14 RF: 0 HOMEOPATHIC SUBSTANCE (SAW PALMETTO) 1 cap PO Q DAY Qty: 0 RF: 0 aspirin 325 mg Tablet 325 mg PO DAILY Qty: 0 RF: 0 doxazosin [Cardura] 4 mg tablet 4 mg PO HS Qty: 90 RF: 3 lisinopril 40 mg tablet 40 mg PO BID Qty: 180 RF: 3 allopurinol 300 mg tablet 300 mg PO DAILY Qty: 90 RF: 3 amlodipine [Norvasc] 5 mg tablet 5 mg PO QDAY Qty: 90 RF: 3 cyanocobalamin (vitamin B-12) 1,000 mcg/mL solution 1,000 mcg IM QMONTH Qty: 3 RF: 3 ciprofloxacin HCl 250 mg tablet 250 mg PO BID Qty: 6 RF: 0 Referrals: Amos Chicas MD [Primary Care Provider] -
[2021-01-15 15:01] VITALS: BP 168/74; PULSE 67; RESP 16; O2SAT 98
== END 2021-01-15 15:02 | disposition home or self-care (01) ==
PROVIDERS: Emergency Provider Emergency Medicine; Family Provider Family Medicine; PCP Family Medicine
DX: T83.021A Displacement of indwelling urethral catheter, initial encounter (principal)
CPT/HCPCS: 51702; 99283

== ENCOUNTER 2021-01-16 19:56 | Emergency (ER) | payer MEDICARE, OTHER, SELFPAY ==
--- NOTE | 2021-01-16 21:59 | ED.MALEGU ---
HPI - Male Genitourinary General Chief complaint: Urogenital-Male Stated complaint: BLOCKED CATH Time Seen by Provider: 01/16/21 21:19 Source: patient and old records reviewed Mode of arrival: Ambulatory Limitations: no limitations History of Present Illness HPI Narrative: Patient is a 85-year-old male who presents for the 3rd time this weekend with Arroyo catheter problem. He has had frequent blood clots unclogged catheters. He was seen evaluated yesterday 16 Moldovan was changed out for an 18 [place]ovan and he was told to start Cipro which she aortic had a prescription for. His urinalysis grew strep b. Tonight he noticed decreased urine output he had some small blood clots that they noticed earlier in the day but now unable to flush catheter. Related Data Home Medications Medication Instructions Recorded Confirmed HOMEOPATHIC SUBSTANCE (SAW 1 cap PO Q DAY #0 04/12/11 01/11/21 ITZ) aspirin 325 mg PO DAILY #0 04/12/11 01/11/21 Previous Rx's Medication Instructions Recorded Syringes: 3ml Luer-Wilmar Syringe 25g #12 each 03/16/19 x 1 allopurinol 300 mg tablet 300 mg PO DAILY #90 tab 03/01/20 amlodipine 5 mg tablet 5 mg PO QDAY #90 tab 03/01/20 cyanocobalamin (vitamin B-12) 1,000 mcg IM QMONTH #3 ml 03/01/20 1,000 mcg/mL injection solution doxazosin 4 mg tablet 4 mg PO HS #90 tab 03/01/20 lisinopril 40 mg tablet 40 mg PO BID #180 tab 03/01/20 ciprofloxacin HCl 500 mg tablet 500 mg PO BID #14 tab 01/05/21 tamsulosin 0.4 mg capsule 0.4 mg PO DAILY #90 cap 01/05/21 ciprofloxacin HCl 250 mg tablet 250 mg PO BID #6 tab 01/11/21 Allergies Allergy/AdvReac Type Severity Reaction Status Date / Time No Known Drug Allergies Allergy Verified 01/11/21 08:58 Review of Systems Review of Systems Narrative: GENERAL: Denies chills,fever HEENT: Denies throat pain RESPIRATORY: Denies dyspnea, cough, wheezing CARDIOVASCULAR: Denies chest pain, palpitations GASTROINTESTINAL: Denies nausea, vomiting : See HPI MUSCULOSKELETAL: Denies extremity pain, injury SKIN: No rash, no laceration, no pruritus NEUROLOGIC: Denies weakness, dizziness, headache, numbness 8 point review of systems is negative except for those stated above and HPI Patient History Medical History Benign prostatic hyperplasia (04/12/11) Chicken pox Fractures Gout (~2005) Hearing loss Hypertension Measles Mumps Ruptured tympanic membrane (~1964) Family History Father Heart disease Stroke Social History marital status: household members: spouse Smoking Status: Never smoker alcohol intake: current (1-2 A DAY ) substance use type: does not use Smoking Status: Never smoker alcohol intake frequency: 0-2 drinks per day Substance Use Type: does not use Exam Initial Vital Signs Initial Vital Signs: Vital Signs Temperature 98 F 01/16/21 22:29 Pulse Rate 66 01/16/21 22:29 Respiratory Rate 18 01/16/21 22:29 Blood Pressure 126/88 01/16/21 22:29 Pulse Oximetry 99 01/16/21 22:29 GENERAL: Well-appearing, well-nourished and in no acute distress. CARDIOVASCULAR: peripheral pulses in tact, cap refill <2 sec RESPIRATORY: No respiratory distress, speaks in full sentences without difficulty : Arroyo catheter has been replaced draining clear urine EXTREMITIES: Normal range of motion, no clubbing or edema. Neurovascularly intact NEUROLOGICAL: Cranial nerves II through XII grossly intact. Normal gait and speech. SKIN: Warm, dry, no petechiae, no rashes or lesions. MDM - Male Genitourinary MDM Narrative Medical decision making narrative: Arroyo catheter was switched to a 24 Moldovan. It was manually irrigated and is now clear. Recommend patient continue to take his Cipro. Discharge Plan Departure Patient Disposition: Home Clinical Impression: Complication, blocked Arroyo catheter Qualifiers: Encounter type: initial encounter Qualified Code(s): T83.091A - Other mechanical complication of indwelling urethral catheter, initial encounter Instructions: How to Care for Your Arroyo Catheter -- Male Activity Restrictions/Additional Instructions: *You have been diagnosed with Arroyo catheter complication *What to do: Your Arroyo catheter size has increased to a 24 Moldovan. Please call Urology 1st thing tomorrow to schedule follow-up appointment. Hopefully this larger size does not get blocked as her previous 1. *Continue to take medications as directed Please continue antibiotics as previously prescribed *Follow up with your primary care provider in 2-3 days *Return to ER if you should have gross blood in catheter, no drainage of Arroyo or any new, worsening or concerning symptoms Prescriptions: No Action (DME) Syringes: 3ml Luer-Wilmar Syringe 25g x 1 0 .Route .MEDSUPPLY Qty: 12 RF: 3 tamsulosin [Flomax] 0.4 mg capsule 0.4 mg PO DAILY Qty: 90 RF: 3 ciprofloxacin HCl [Cipro] 500 mg tablet 500 mg PO BID Qty: 14 RF: 0 HOMEOPATHIC SUBSTANCE (SAW [place]MET[place]) 1 cap PO Q DAY Qty: 0 RF: 0 aspirin 325 mg Tablet 325 mg PO DAILY Qty: 0 RF: 0 doxazosin [Cardura] 4 mg tablet 4 mg PO HS Qty: 90 RF: 3 lisinopril 40 mg tablet 40 mg PO BID Qty: 180 RF: 3 allopurinol 300 mg tablet 300 mg PO DAILY Qty: 90 RF: 3 amlodipine [Norvasc] 5 mg tablet 5 mg PO QDAY Qty: 90 RF: 3 cyanocobalamin (vitamin B-12) 1,000 mcg/mL solution 1,000 mcg IM QMONTH Qty: 3 RF: 3 ciprofloxacin HCl 250 mg tablet 250 mg PO BID Qty: 6 RF: 0 Referrals: Amos Chicas MD [Primary Care Provider] - Rodney Jack MD [Physician] -
[2021-01-16 22:29] VITALS: BP 126/88; PULSE 66; RESP 18; TEMP 36.6; O2SAT 99
--- NOTE | 2021-01-16 22:33 | PC.NURSE ---
Addendum entered by Joellen Murillo R.N. 01/17/21 00:33: error. Put in a 24Fr Brown Original Note: 18Fr coude Catheter clogged.. No urine for a few hours today. Irrigated brown with 400cc urine and only one small clot came out. Urine now running clean with a replaced 20Fr Brown
== END 2021-01-16 22:30 | disposition home or self-care (01) ==
PROVIDERS: Emergency Provider Emergency Medicine; Family Provider Family Medicine; PCP Family Medicine
DX: T83.091A Other mechanical complication of indwelling urethral catheter, initial encounter (principal)
CPT/HCPCS: 51702; 99283

== ENCOUNTER 2021-01-17 15:40 | Emergency (ER) | payer MEDICARE, OTHER, SELFPAY ==
--- NOTE | 2021-01-17 16:03 | ED.GENADULT ---
HPI - General Adult General Chief complaint: Urogenital-Male Stated complaint: PLUGGED URINARY CATHETER Time Seen by Provider: 01/17/21 15:45 Source: patient Mode of arrival: Ambulatory Limitations: no limitations History of Present Illness HPI narrative: 85-year-old male with an indwelling Arroyo catheter and has had multiple visits over the past several days for issues with blockages secondary to blood clots. He is on an aspirin otherwise no other anticoagulation. He states the last time he had any drainage from his catheter was this morning. He feels like he is becoming distended and has a full bladder. He has a follow-up with Urology on the night this month. He is also on antibiotics. Related Data Home Medications Medication Instructions Recorded Confirmed HOMEOPATHIC SUBSTANCE (SAW 1 cap PO Q DAY #0 04/12/11 01/11/21 ITZ) aspirin 325 mg PO DAILY #0 04/12/11 01/11/21 Previous Rx's Medication Instructions Recorded Syringes: 3ml Luer-Wilmar Syringe 25g #12 each 03/16/19 x 1 allopurinol 300 mg tablet 300 mg PO DAILY #90 tab 03/01/20 amlodipine 5 mg tablet 5 mg PO QDAY #90 tab 03/01/20 cyanocobalamin (vitamin B-12) 1,000 mcg IM QMONTH #3 ml 03/01/20 1,000 mcg/mL injection solution doxazosin 4 mg tablet 4 mg PO HS #90 tab 03/01/20 lisinopril 40 mg tablet 40 mg PO BID #180 tab 03/01/20 ciprofloxacin HCl 500 mg tablet 500 mg PO BID #14 tab 01/05/21 tamsulosin 0.4 mg capsule 0.4 mg PO DAILY #90 cap 01/05/21 ciprofloxacin HCl 250 mg tablet 250 mg PO BID #6 tab 01/11/21 lidocaine HCl 1 applic TOPICAL TID PRN #50 ml 01/17/21 Allergies Allergy/AdvReac Type Severity Reaction Status Date / Time No Known Drug Allergies Allergy Verified 01/17/21 17:20 Review of Systems Constitutional Constitutional: Denies fever(s) Gastrointestinal Comments: Abdominal distension Genitourinary Comments: Urinary retention Hematologic/Lymphatic Comments: On aspirin Allergic/Immunologic Allergic/Immunologic: Reports system reviewed and no additional complaints, except as documented Patient History Medical History Benign prostatic hyperplasia (04/12/11) Chicken pox Fractures Gout (~2005) Hearing loss Hypertension Measles Mumps Ruptured tympanic membrane (~1965) Family History Father Heart disease Stroke Social History marital status: household members: spouse Smoking Status: Never smoker alcohol intake: current (1-2 A DAY ) substance use type: does not use Smoking Status: Never smoker alcohol intake frequency: 0-2 drinks per day Substance Use Type: does not use Exam Initial Vital Signs Initial Vital Signs: Vital Signs Temperature 98.8 F 01/17/21 16:05 Pulse Rate 74 01/17/21 16:05 Respiratory Rate 18 01/17/21 16:05 Blood Pressure 196/90 H 01/17/21 16:05 Pulse Oximetry 98 01/17/21 16:05 Const General: cooperative and comfortable Limitations: mental status not altered HENMT Head: normal to inspection and normocephalic GI Other: Lower abdomen distended Other: Arroyo catheter in place Skin Lesions: no lesions Rashes: no rashes Neuro General: patient alert and patient awake Extrem General: normal to inspection Psych Appearance: grossly normal Course Vital Signs Vital signs: Vital Signs - 8 hr 01/17/21 16:05 Temperature 98.8 F Pulse Rate 74 Respiratory Rate 18 Blood Pressure 196/90 H Pulse Oximetry 98 Medical Decision Making MDM Narrative Medical decision making narrative: Nursing attempted to flush his catheter but was unsuccessful. Was replaced with a 3 way catheter. Patient was irrigated until clear. Will have him continue on his antibiotics. Will prescribe some lidocaine jelly to help with irritation at the tip of the meatus. Urine he has an appointment scheduled with Urology. He was given return precautions. He expressed understanding and agreement. Discharge Plan Departure Patient Disposition: Home Clinical Impression: Complication, blocked Arroyo catheter Instructions: How to Care for Your Arroyo Catheter -- Male Activity Restrictions/Additional Instructions: Continue with the antibiotics. Keep your scheduled appointment with Urology coming up in a couple days. Return to the emergency department for any new or worsening symptoms. Prescriptions: New lidocaine HCl 2 % jelly 1 applic topical TID PRN (Reason: catheter insertion) Qty: 50 RF: 0 No Action (DME) Syringes: 3ml Luer-Wilmar Syringe 25g x 1 0 .Route .MEDSUPPLY Qty: 12 RF: 3 tamsulosin [Flomax] 0.4 mg capsule 0.4 mg PO DAILY Qty: 90 RF: 3 ciprofloxacin HCl [Cipro] 500 mg tablet 500 mg PO BID Qty: 14 RF: 0 HOMEOPATHIC SUBSTANCE (SAW [place]) 1 cap PO Q DAY Qty: 0 RF: 0 aspirin 325 mg Tablet 325 mg PO DAILY Qty: 0 RF: 0 doxazosin [Cardura] 4 mg tablet 4 mg PO HS Qty: 90 RF: 3 lisinopril 40 mg tablet 40 mg PO BID Qty: 180 RF: 3 allopurinol 300 mg tablet 300 mg PO DAILY Qty: 90 RF: 3 amlodipine [Norvasc] 5 mg tablet 5 mg PO QDAY Qty: 90 RF: 3 cyanocobalamin (vitamin B-12) 1,000 mcg/mL solution 1,000 mcg IM QMONTH Qty: 3 RF: 3 ciprofloxacin HCl 250 mg tablet 250 mg PO BID Qty: 6 RF: 0 Referrals: Amos Chicas MD [Primary Care Provider] -
[2021-01-17 16:05] VITALS: BP 196/90; PULSE 74; RESP 18; TEMP 37.1; O2SAT 98; BMI 25.0
[2021-01-17 19:19] VITALS: BP 174/81; PULSE 76; O2SAT 95
== END 2021-01-17 19:19 | disposition home or self-care (01) ==
PROVIDERS: Emergency Provider Emergency Medicine; Family Provider Family Medicine; PCP Family Medicine
DX: T83.098A Other mechanical complication of other urinary catheter, initial encounter (principal)
CPT/HCPCS: 51702; 99283

== ENCOUNTER → 2021-02-01 10:43 | Outpatient (CLI) | payer MEDICARE, OTHER, SELFPAY | PROVIDERS: Family Provider Family Medicine; PCP Family Medicine; Visit Provider Specialist | DX: N39.0 Urinary tract infection, site not specified (principal); R33.9 Retention of urine, unspecified | CPT/HCPCS: 51798; 81002; 87086 ==

== ENCOUNTER → 2021-03-22 07:22 | Outpatient (CLI) | payer MEDICARE, OTHER, SELFPAY ==
[2021-03-22 08:46] LABS: Add Manual Diff / Slide Review NO; Basophils Absolute Auto 100 /uL (0-100); Basophils Percent Auto 1.4 % (0-2); Eosinophils Absolute Auto 500 /uL (0-450); Eosinophils Percent Auto 8.9 % (2-4); Hematocrit 37.8 % (41-53); Hemoglobin 12.7 g/dL (13.5-17.5); Lymphocytes Absolute Auto 1500 /uL (1100-4500); Mean Corpuscular HGB Conc 33.5 % (30-36); Mean Corpuscular Hemoglobin 31.8 PG (26-34); Mean Corpuscular Volume 94.9 fL (80-100); Monocytes Absolute Auto 500 /uL (0-900); Monocytes Percent Auto 10.5 % (3-14); Neutrophils Absolute Auto 2500 /uL (1500-7000); Neutrophils Percent Auto 50.2 % (50-75); Platelet Count 238 X10^3/uL (150-400); Red Blood Cell Count 3.99 X10^6/uL (4.5-5.9); Red Cell Distribution Width 14.9 % (11.6-14.8); White Blood Cell Count 5.1 X10^3/uL (4.5-11.0)
[2021-03-22 08:55] LABS: Alanine Aminotransferase 14 IU/L (<50); Albumin 3.9 g/dL (3.5-5.0); Albumin Globulin Ratio 1.4 (1.0-2.8); Alkaline Phosphatase 59 U/L (38-126); Aspartate Aminotransferase 29 IU/L (17-59); BUN Creatinine Ratio 19.8 (6-22); Bilirubin Total 0.4 mg/dL (0.2-1.3); Blood Urea Nitrogen 18 mg/dL (9-20); Calcium 9.2 mg/dL (8.4-10.2); Carbon Dioxide 27 mmol/L (22-32); Chloride 106 mmol/L (98-107); Cholesterol 174 mg/dL (140-199); Estimated Glomerular Filt Rate > 60.0 mL/min (>60); Globulin 2.7 g/dL (1.7-4.1); Glucose 93 mg/dL (80-110); HDL Cholesterol 77 mg/dL (40-60); HEMOLYSIS < 15 (0-50); LDL Cholesterol Calculated 86 mg/dL (<100); Potassium 4.4 mmol/L (3.4-5.1); Sodium 136 mmol/L (137-145); Total Protein 6.6 g/dL (6.3-8.2); Triglycerides 53 mg/dL (35-150)
[2021-03-22 09:28] LABS: TSH w/ Reflex to FT4 2.94 uIU/mL (0.47-4.68)
== END ==
PROVIDERS: Family Provider Family Medicine; PCP Family Medicine; Referring Provider Family Medicine; Visit Provider Family Medicine
DX: I10 Essential (primary) hypertension (principal)
CPT/HCPCS: 36415; 80053; 80061; 84443; 85025

== ENCOUNTER → 2022-03-29 07:22 | Outpatient (CLI) | payer MEDICARE, OTHER, SELFPAY ==
[2022-03-29 07:56] LABS: Add Manual Diff / Slide Review NO; Basophils Absolute Auto 100 /uL (0-100); Basophils Percent Auto 1.3 % (0-2); Eosinophils Absolute Auto 300 /uL (0-450); Hematocrit 38.3 % (41-53); Hemoglobin 13.1 g/dL (13.5-17.5); Lymphocytes Absolute Auto 1700 /uL (1100-4500); Lymphocytes Percent Auto 34.1 % (25-40); Mean Corpuscular HGB Conc 34.3 % (30-36); Mean Corpuscular Hemoglobin 32.5 PG (26-34); Mean Corpuscular Volume 94.7 fL (80-100); Monocytes Absolute Auto 600 /uL (0-900); Monocytes Percent Auto 11.6 % (3-14); Neutrophils Absolute Auto 2200 /uL (1500-7000); Platelet Count 234 X10^3/uL (150-400); Red Blood Cell Count 4.04 X10^6/uL (4.5-5.9); Red Cell Distribution Width 15.2 % (11.6-14.8); White Blood Cell Count 4.9 X10^3/uL (4.5-11.0)
[2022-03-29 10:48] LABS: TSH w/ Reflex to FT4 2.73 uIU/mL (0.47-4.68)
[2022-03-29 15:14] LABS: Alanine Aminotransferase 13 IU/L (<50); Albumin 4.1 g/dL (3.5-5.0); Albumin Globulin Ratio 1.6 (1.0-2.8); Alkaline Phosphatase 60 U/L (38-126); Aspartate Aminotransferase 28 IU/L (17-59); BUN Creatinine Ratio 18.3 (6-22); Bilirubin Total 0.5 mg/dL (0.2-1.3); Blood Urea Nitrogen 17 mg/dL (9-20); Carbon Dioxide 24 mmol/L (22-32); Chloride 105 mmol/L (98-107); Cholesterol 164 mg/dL (140-199); Estimated Glomerular Filt Rate > 60 mL/min (>60); Globulin 2.6 g/dL (1.7-4.1); Glucose 97 mg/dL (80-110); HDL Cholesterol 82 mg/dL (40-60); HEMOLYSIS < 15 (0-50); LDL Cholesterol Calculated 73 mg/dL (<100); Potassium 4.8 mmol/L (3.4-5.1); Sodium 137 mmol/L (137-145); Total Protein 6.7 g/dL (6.3-8.2); Triglycerides 43 mg/dL (35-150)
[2022-03-29 15:51] LABS: Prostate Specific Antigen 1.83 ng/mL (0.10-4.00)
[2022-03-29 16:01] LABS: Vitamin B12 443 pg/mL (239-931)
== END ==
PROVIDERS: Family Provider Family Medicine; PCP Family Medicine; Referring Provider Specialist; Visit Provider Specialist
DX: N40.1 Benign prostatic hyperplasia with lower urinary tract symptoms (principal); R33.8 Other retention of urine; I10 Essential (primary) hypertension; Z87.898 Personal history of other specified conditions; E53.8 Deficiency of other specified B group vitamins
CPT/HCPCS: 36415; 80053; 80061; 82607; 84153; 84443; 85025

== ENCOUNTER → 2023-01-18 08:10 | Outpatient (CLI) | payer MEDICARE, OTHER, SELFPAY ==
[2023-01-18 09:34] LABS: Add Manual Diff / Slide Review NO; Basophils Absolute Auto 100 /uL (0-100); Basophils Percent Auto 0.9 % (0-2); Eosinophils Absolute Auto 400 /uL (0-450); Eosinophils Percent Auto 6.1 % (2-4); Hematocrit 38.4 % (41-53); Hemoglobin 13.3 g/dL (13.5-17.5); Lymphocytes Absolute Auto 2000 /uL (1100-4500); Lymphocytes Percent Auto 31.9 % (25-40); Mean Corpuscular HGB Conc 34.5 % (30-36); Mean Corpuscular Hemoglobin 32.4 PG (26-34); Mean Corpuscular Volume 93.8 fL (80-100); Monocytes Absolute Auto 700 /uL (0-900); Monocytes Percent Auto 10.7 % (3-14); Neutrophils Absolute Auto 3100 /uL (1500-7000); Neutrophils Percent Auto 50.4 % (50-75); Platelet Count 229 X10^3/uL (150-400); Red Cell Distribution Width 14.8 % (11.6-14.8); White Blood Cell Count 6.2 X10^3/uL (4.5-11.0)
[2023-01-18 09:57] LABS: Alanine Aminotransferase 19 IU/L (<50); Albumin 4.1 g/dL (3.5-5.0); Albumin Globulin Ratio 1.6 (1.0-2.8); Alkaline Phosphatase 62 U/L (38-126); Aspartate Aminotransferase 32 IU/L (17-59); BUN Creatinine Ratio 18.5 (6-22); Bilirubin Total 0.6 mg/dL (0.2-1.3); Blood Urea Nitrogen 17 mg/dL (9-20); Calcium 9.2 mg/dL (8.4-10.2); Carbon Dioxide 29 mmol/L (22-32); Chloride 103 mmol/L (98-107); Estimated Glomerular Filt Rate > 60 mL/min (>60); Globulin 2.6 g/dL (1.7-4.1); Glucose 91 mg/dL (80-110); HEMOLYSIS < 15 (0-50); Potassium 4.7 mmol/L (3.4-5.1); Sodium 136 mmol/L (137-145); Total Protein 6.7 g/dL (6.3-8.2)
[2023-01-18 10:46] LABS: Vitamin B12 320 pg/mL (239-931)
[2023-01-21 11:35] LABS: HEMOLYSIS < 15 (0-50); Iron 143 ug/dL (49-181)
[2023-01-21 11:48] LABS: Percent Iron Saturation 44 % (20-50); Total Iron Binding Capacity 328 ug/dL (261-462); Transferrin 247 mg/dL (206-381)
[2023-01-22 14:11] LABS: Ferritin 55 ng/mL (18-464)
== END ==
PROVIDERS: Family Provider Family Medicine; PCP Family Medicine; Referring Provider Physician Assistant; Visit Provider Physician Assistant
DX: E53.8 Deficiency of other specified B group vitamins (principal); I47.1 Supraventricular tachycardia; I10 Essential (primary) hypertension; M10.9 Gout, unspecified; D64.9 Anemia, unspecified
CPT/HCPCS: 36415; 80053; 82607; 82728; 83540; 83550; 84550; 85025

== ENCOUNTER → 2024-03-25 07:37 | Outpatient (CLI) | payer MEDICARE, OTHER, SELFPAY ==
[2024-03-25 09:17] LABS: Add Manual Diff / Slide Review NO; Basophils Absolute Auto 100 /uL (0-100); Eosinophils Absolute Auto 600 /uL (0-450); Eosinophils Percent Auto 11.4 % (2-4); Hematocrit 38.3 % (41-53); Hemoglobin 13.1 g/dL (13.5-17.5); Lymphocytes Absolute Auto 1700 /uL (1100-4500); Lymphocytes Percent Auto 30.5 % (25-40); Mean Corpuscular HGB Conc 34.1 % (30-36); Mean Corpuscular Hemoglobin 32.3 PG (26-34); Mean Corpuscular Volume 94.8 fL (80-100); Monocytes Absolute Auto 600 /uL (0-900); Monocytes Percent Auto 10.7 % (3-14); Neutrophils Absolute Auto 2500 /uL (1500-7000); Neutrophils Percent Auto 46.4 % (50-75); Platelet Count 263 X10^3/uL (150-400); Red Blood Cell Count 4.04 X10^6/uL (4.5-5.9); Red Cell Distribution Width 15.1 % (11.6-14.8); White Blood Cell Count 5.5 X10^3/uL (4.5-11.0)
[2024-03-25 09:47] LABS: Alanine Aminotransferase 15 IU/L (<50); Albumin 4.1 g/dL (3.5-5.0); Albumin Globulin Ratio 1.6 (1.0-2.8); Alkaline Phosphatase 66 U/L (38-126); Aspartate Aminotransferase 30 IU/L (17-59); BUN Creatinine Ratio 18.8 (6-22); Bilirubin Total 0.7 mg/dL (0.2-1.3); Blood Urea Nitrogen 18 mg/dL (9-20); Calcium 9.5 mg/dL (8.4-10.2); Carbon Dioxide 27 mmol/L (22-32); Chloride 106 mmol/L (98-107); Cholesterol 166 mg/dL (140-199); Estimated Glomerular Filt Rate > 60 mL/min (>60); Globulin 2.5 g/dL (1.7-4.1); Glucose 102 mg/dL (80-110); HDL Cholesterol 78 mg/dL (40-60); HEMOLYSIS < 15 (0-50); LDL Cholesterol Calculated 76 mg/dL (<100); Potassium 5.1 mmol/L (3.4-5.1); Sodium 138 mmol/L (137-145); Total Protein 6.6 g/dL (6.3-8.2); Triglycerides 60 mg/dL (35-150); Uric Acid 3.6 mg/dL (3.5-8.5)
[2024-03-25 10:17] LABS: TSH w/ Reflex to FT4 2.81 uIU/mL (0.47-4.68)
[2024-03-25 10:34] LABS: Creatinine Urine Random 90.13 mg/dL
[2024-03-25 10:36] LABS: Vitamin B12 440 pg/mL (239-931)
[2024-03-25 10:39] LABS: Microalbumin Urine Random 5.1 mg/dL (0-1.6)
== END ==
PROVIDERS: Family Provider Family Medicine; PCP Family Medicine; Referring Provider Physician Assistant; Visit Provider Physician Assistant
DX: I10 Essential (primary) hypertension (principal); N40.0 Benign prostatic hyperplasia without lower urinary tract symptoms; M10.9 Gout, unspecified; E53.8 Deficiency of other specified B group vitamins; Z13.220 Encounter for screening for lipoid disorders; Z13.6 Encounter for screening for cardiovascular disorders; I47.10 Supraventricular tachycardia, unspecified
CPT/HCPCS: 36415; 80053; 80061; 82043; 82570; 82607; 84153; 84443; 84550; 85025

== ENCOUNTER → 2024-04-16 07:01 | Outpatient (CLI) | payer MEDICARE, OTHER, SELFPAY ==
--- NOTE | 2024-04-16 07:02 | DI.US.S_ITS ---
PROCEDURE: US ABDOMEN LIMITED INDICATIONS: LIVER CYST TECHNIQUE: Real-time scanning was performed of the abdominal and retroperitoneal organs, with image documentation. COMPARISON: None. FINDINGS: Liver: Heterogeneous and hyperechoic with irregular borders. Mass in the posterior right hepatic lobe measuring 3.8 x 4.9 x 3.4 cm peripherally without vascularity. Gallbladder: No gallstones. No wall thickening. No pericholecystic edema. Negative sonographic Arriaza's sign. Biliary ducts: Intrahepatic bile ducts are non-dilated. Extrahepatic bile duct caliber measures 4.7 mm. Normal is 6-7 mm or less in diameter, or 10 mm or less post-cholecystectomy. Pancreas: Not well seen. Miscellaneous: No free abdominal fluid. IMPRESSION: 1. Heterogeneous liver with a nodular surface, hepatic cirrhosis is in the differential. Recommend clinical correlation. 2. Mass in the right hepatic lobe measuring up to 4.9 cm. Malignancy such as hepatocellular carcinoma is not excluded and multiphase liver CT or MRI is recommended for further evaluation. Dictated by: Melvin Franks M.D. on 04/24/2024 at 16:38 Approved by: Melvin Franks M.D. on 04/24/2024 at 16:41
== END ==
PROVIDERS: Family Provider Family Medicine; PCP Family Medicine; Referring Provider Family Medicine; Visit Provider Family Medicine
DX: K76.89 Other specified diseases of liver (principal)
CPT/HCPCS: 76705

== ENCOUNTER → 2024-05-01 08:13 | Outpatient (CLI) | payer MEDICARE, OTHER, SELFPAY ==
--- NOTE | 2024-05-01 08:14 | DI.MRI.S_ITS ---
PROCEDURE: MR ABDOMEN LIVER PROTOCOL INDICATIONS: Liver cyst seen on CT/US TECHNIQUE: Coronal HASTE, axial 2D FLASH in- and [id number]; axial breath-hold T2 FSE. Dynamic axial VIBE during the administration of contrast; post-contrast coronal VIBE or 2D FLASH with fat saturation from the hepatic dome to the iliac crests. Optional diffusion weighted imaging and ADC may be performed. COMPARISON: [facility], [place], US ABDOMEN LIMITED, 04/16/2024, 7:22. FINDINGS: Image quality: Diagnostic Lower chest: No basal effusions Lung bases are not well evaluated this study. Liver: A medial right lobe lesion is seen measuring 4 x 3.6 cm. There are multiple loculations.. There is high T2 signal throughout the lesion. There is discontinuous nodular enhancement on multiple phases that fills in on later delayed phases. This seems to involve the posterior margin more than the anterior margin. No other suspicious lesions identified. The liver contour is not overtly cirrhotic. Gallbladder and biliary system: Unremarkable, nondilated Pancreas: No ductal dilation Spleen: Nonenlarged Adrenals: No discrete nodules Kidneys: No solid mass or hydronephrosis Vessels and lymph nodes: No pathologic lymph nodes by size criteria. No abdominal aortic aneurysm. The main portal vein appears patent. Bowel and peritoneum: No evidence of pathologic ascites or drainable abscess. Body wall: Unremarkable Bones: Degenerative changes. IMPRESSION: Medial right lobe liver lesion with imaging characteristics most compatible with cavernous hemangioma. However, some slightly atypical characteristics, such as multi locular appearance and asymmetric filling (more involving the posterior margin) are present, which may relate to partial thrombosis. A follow-up liver MRI is suggested in 3-6 months to ensure stability. Other findings above. Dictated by: Yuri Juares M.D. on 05/01/2024 at 11:11 Approved by: Yuri Juares M.D. on 05/01/2024 at 11:17
== END ==
LOC: MRI 08:14
PROVIDERS: Family Provider Family Medicine; PCP Family Medicine; Referring Provider Family Medicine; Visit Provider Family Medicine
DX: K76.89 Other specified diseases of liver (principal)
CPT/HCPCS: 74183; A9579

== ENCOUNTER → 2024-05-14 14:43 | Outpatient (CLI) | payer MEDICARE, OTHER, SELFPAY | PROVIDERS: Family Provider Family Medicine; PCP Family Medicine; Visit Provider Urology | DX: N40.1 Benign prostatic hyperplasia with lower urinary tract symptoms (principal); N13.8 Other obstructive and reflux uropathy; R82.81 Pyuria; R39.9 Unspecified symptoms and signs involving the genitourinary system; Z87.898 Personal history of other specified conditions | CPT/HCPCS: 81002; 87077; 87086; 87186; 99215 ==

== ENCOUNTER → 2024-06-02 08:08 | Outpatient (CLI) | payer MEDICARE, OTHER, SELFPAY ==
[2024-06-02 09:12] LABS: BUN Creatinine Ratio 23.3 (6-22); Blood Urea Nitrogen 21 mg/dL (9-20); Calcium 9.6 mg/dL (8.4-10.2); Carbon Dioxide 27 mmol/L (22-32); Chloride 103 mmol/L (98-107); Estimated Glomerular Filt Rate > 60 mL/min (>60); Glucose 103 mg/dL (80-110); HEMOLYSIS < 15 (0-50); Potassium 4.8 mmol/L (3.4-5.1); Sodium 136 mmol/L (137-145)
== END ==
PROVIDERS: Family Provider Family Medicine; PCP Family Medicine; Referring Provider Urology; Visit Provider Urology
DX: N40.1 Benign prostatic hyperplasia with lower urinary tract symptoms (principal); N13.8 Other obstructive and reflux uropathy
CPT/HCPCS: 36415; 80048

== ENCOUNTER → 2025-01-25 16:00 | Outpatient (CLI) | payer MEDICARE, OTHER, SELFPAY ==
--- NOTE | 2025-01-25 16:05 | DI.ECHO.S_ITS ---
[place]+ [facility] : : [id number] : : [place] : : [id number] : : Phone: [phone] Echocardiogram Report + + :Name: LAQUITA CHINCHILLA Study Date: 01/25/2025 Height: 71 in : :[facility] ReadingLocation: Weight: 180 lb : : Gender: Male BSA: 2.0 m2 : :: 1935 Age: 89 yrs BP: 189/83 mmHg: :Reason For Study: Hypertension : :Ordering Physician: YOUSUF, : :DEONDRE Performed By: Jacqueline Jordan : :Referring: DEONDRE TO : + + Interpretation Summary The patient was in a bradycardic rhythm during the exam. The ejection fraction is estimated to be 50-55%. Grade I diastolic dysfunction. The right ventricle grossly appears normal in size with probable normal systolic function. The right ventricular systolic pressure is estimated to be at least 31 mmHg based on an estimated right atrial pressure of 3 mm Hg. There is mild aortic regurgitation. There is mild to moderate tricuspid regurgitation. The ascending aorta is mildly enlarged 4.0 cm. Procedure: A two-dimensional transthoracic echocardiogram with color flow and Doppler was performed. The study quality was technically adequate. There is no prior echocardiogram noted for this patient. The heart rate ranged between 50-56 bpm during the study. The patient was in a bradycardic rhythm during the exam. Left Ventricle: The left ventricle is normal in size and wall thickness. The ejection fraction is estimated to be 50-55%. There are no obvious focal wall motion abnormalities noted but poor endocardial definition reduces the sensitivity for the detection of such. Grade I diastolic dysfunction. Right Ventricle: The right ventricle grossly appears normal in size with probable normal systolic function. Atria: The left atrium is severely dilated. The right atrium is moderately dilated. The interatrial septum grossly appears intact with no obvious evidence for an atrial septal defect. Mitral Valve: The mitral valve leaflets appear mildly thickened, but open well. There is trace mitral regurgitation. Aortic Valve: The aortic valve is trileaflet. The aortic valve opens well. There is moderate aortic valve sclerosis. There is mild aortic regurgitation. Tricuspid Valve: The tricuspid valve leaflets are thin and pliable. There is mild to moderate tricuspid regurgitation. The right ventricular systolic pressure is estimated to be at least 31 mmHg based on an estimated right atrial pressure of 3 mm Hg. Pulmonic Valve: The pulmonic valve is not well seen, but is grossly normal. There is trace pulmonic regurgitation. Great Vessels: The aortic root is normal size. The ascending aorta is mildly enlarged. The aortic arch is normal in size. The IVC is of normal diameter and collapses greater than 50% with a sniff. This suggests a low right atrial pressure of 3 mm Hg. Pericardium/ Pleura There is no pericardial effusion. There is no pleural effusion. MMode/2D Measurements & Calculations LVIDd: 4.6 cm LVOT diam: 2.3 cm LVIDs: 3.0 cm Ao root diam: 3.8 cm FS: 34.0 % asc Aorta Diam: 4.0 cm EPSS: 0.21 cm Ao Arch Diam (Prox Trans): 2.8 cm IVSd: 0.89 cm LVPWd: 0.94 cm LV dickey. diameter/BSA (cm/m^2): 2.3 LV sys. diameter/BSA (cm/m^2): 1.5 LA A2 area: 27.0 cm2 RA long axis: 6.6 cm LA A4 area: 25.3 cm2 RA area: 23.9 cm2 LA length (vol): 6.0 cm RA vol: 73.2 ml LA vol: 96.5 ml RA : 36.3 ml/m2 LA vol index: 47.8 ml/m2 IVC diam: 1.5 cm RVD1 (basal): 3.2 cm TAPSE: 2.5 cm Doppler Measurements & Calculations Ao V2 max: 123.9 cm/sec LVOT Max Farhad: 66.6 cm/sec Ao V2 mean: 86.8 cm/sec LV V1 max P.8 mmHg Ao max P.1 mmHg LV V1 VTI: 16.1 cm Ao mean P.3 mmHg SIVAN(I,D): 2.0 cm2 Ao V2 VTI: 32.7 cm SIVAN(V,D): 2.2 cm2 sev ratio: 0.49 SIVAN indexed to BSA (cm^2/m^2): 0.99 MV E max farhad: 47.1 cm/sec TR max farhad: 265.0 cm/sec MV A max frahad: 59.9 cm/sec TR max P.1 mmHg MV E/A: 0.79 PA V2 max: 63.6 cm/sec Med Peak E' Farhad: 5.4 cm/sec PA V2 mean: 40.9 cm/sec E/E' med: 8.8 PA mean P.80 mmHg Lat Peak E' Farhad: 5.5 cm/sec PA pr(Accel): 31.0 mmHg E/E' lat: 8.6 E/e' average: 8.7 MV dec time: 0.50 [facility] 65.4 ml Reading Physician:09:58 AM
--- NOTE | 2025-01-25 16:05 | DI.MRI.S_ITS ---
PROCEDURE: MR ABDOMEN LIVER PROTOCOL INDICATIONS: liver memangomia with possible clot TECHNIQUE: Coronal HASTE, axial 2D FLASH in- and [id number]; axial breath-hold T2 FSE. Dynamic axial VIBE during the administration of contrast; post-contrast coronal VIBE or 2D FLASH with fat saturation from the hepatic dome to the iliac crests. Optional diffusion weighted imaging and ADC may be performed. COMPARISON: [facility], , MR ABDOMEN LIVER PROTOCOL, 05/01/2024, 8:37. FINDINGS: Image quality: Diagnostic Lower chest: Unremarkable lung bases Liver: Overall similar T2 hyperintense lesion in the medial right lobe measuring 4.5 x 3.4 cm (11/07), previously 4.3 x 3.3 cm when measured similarly. AP dimension is 4.2 cm previously 4.4 cm. Discontinuous nodular enhancement is seen, with heterogeneous involvement throughout the lesion. There is high T2 signal throughout the lesion. No suspicious lesions elsewhere. No cirrhotic liver contour. Gallbladder and biliary system: Unremarkable, nondilated Pancreas: No ductal dilation Spleen: Nonenlarged Adrenals: No discrete nodules Kidneys: Renal cysts are present. No solid mass. No hydronephrosis Vessels and lymph nodes: No enlarged lymph nodes by size criteria. No abdominal aortic aneurysm. The main portal vein appears patent Bowel and peritoneum: No small bowel obstruction. Moderate fecal loading. Body wall: Unremarkable Bones: No aggressive appearing osseous abnormality. 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 Non cirrhotic liver contour. Dictated by: Yuri Juares M.D. on 01/26/2025 at 9:03 Approved by: Yuri Juares M.D. on 01/26/2025 at 9:09
== END ==
PROVIDERS: Family Provider Family Medicine; PCP Family Medicine; Referring Provider Family Medicine; Visit Provider Family Medicine
DX: K76.89 Other specified diseases of liver (principal); D18.03 Hemangioma of intra-abdominal structures; I47.10 Supraventricular tachycardia, unspecified
CPT/HCPCS: 74183; 93306; A9579

== ENCOUNTER → 2025-02-08 14:53 | Outpatient (CLI) | payer MEDICARE, OTHER, SELFPAY | LOC: CAR 14:54 | PROVIDERS: Family Provider Family Medicine; PCP Family Medicine; Referring Provider Family Medicine; Visit Provider Family Medicine | DX: I48.91 Unspecified atrial fibrillation (principal); I48.92 Unspecified atrial flutter; I49.9 Cardiac arrhythmia, unspecified; R00.0 Tachycardia, unspecified; R00.1 Bradycardia, unspecified; R00.2 Palpitations | CPT/HCPCS: 93246 ==

== ENCOUNTER → 2025-02-15 08:45 | Outpatient (CLI) | payer MEDICARE, OTHER, SELFPAY ==
[2025-02-15 09:23] LABS: Add Manual Diff / Slide Review NO; Basophils Absolute Auto 100 /uL (0-100); Basophils Percent Auto 1.1 % (0-2); Eosinophils Absolute Auto 300 /uL (0-450); Eosinophils Percent Auto 5.9 % (2-4); Hematocrit 40.9 % (41-53); Hemoglobin 13.8 g/dL (13.5-17.5); Lymphocytes Absolute Auto 2300 /uL (1100-4500); Lymphocytes Percent Auto 38.8 % (25-40); Mean Corpuscular HGB Conc 33.8 % (30-36); Mean Corpuscular Hemoglobin 31.3 PG (26-34); Mean Corpuscular Volume 92.6 fL (80-100); Monocytes Absolute Auto 700 /uL (0-900); Monocytes Percent Auto 11.3 % (3-14); Neutrophils Absolute Auto 2500 /uL (1500-7000); Neutrophils Percent Auto 42.9 % (50-75); Platelet Count 254 X10^3/uL (150-400); Red Blood Cell Count 4.41 X10^6/uL (4.5-5.9); Red Cell Distribution Width 15.5 % (11.6-14.8); White Blood Cell Count 5.8 X10^3/uL (4.5-11.0)
[2025-02-15 09:57] LABS: Alanine Aminotransferase 17 IU/L (<50); Albumin 4.2 g/dL (3.5-5.0); Albumin Globulin Ratio 1.6 (1.0-2.8); Alkaline Phosphatase 69 U/L (38-126); Aspartate Aminotransferase 30 IU/L (17-59); BUN Creatinine Ratio 26.3 (6-22); Bilirubin Total 0.7 mg/dL (0.2-1.3); Blood Urea Nitrogen 25 mg/dL (9-20); Calcium 9.5 mg/dL (8.4-10.2); Carbon Dioxide 22 mmol/L (22-32); Chloride 105 mmol/L (98-107); Cholesterol 185 mg/dL (140-199); Estimated Glomerular Filt Rate > 60 mL/min (>60); Globulin 2.6 g/dL (1.7-4.1); Glucose 109 mg/dL (70-99); HDL Cholesterol 77 mg/dL (40-60); HEMOLYSIS < 15 (0-50); LDL Cholesterol Calculated 92 mg/dL (<100); Potassium 4.9 mmol/L (3.4-5.1); Sodium 135 mmol/L (137-145); Total Protein 6.8 g/dL (6.3-8.2); Triglycerides 82 mg/dL (35-150)
[2025-02-15 10:09] LABS: Thyroid Stimulating Hormone 2.91 uIU/mL (0.47-4.68)
== END ==
PROVIDERS: Family Provider Family Medicine; PCP Family Medicine; Referring Provider Family Medicine; Visit Provider Family Medicine
DX: N13.8 Other obstructive and reflux uropathy (principal); K76.89 Other specified diseases of liver; I10 Essential (primary) hypertension; N40.1 Benign prostatic hyperplasia with lower urinary tract symptoms; R33.8 Other retention of urine
CPT/HCPCS: 36415; 80053; 80061; 84443; 85025